=== PATIENT | female | born 1960 | race African-American/Black ===

== ENCOUNTER 2019-11-16 17:55 | Inpatient (IN) | payer MEDICAID ==
[~2019-11-16] VITALS: Ht 160 cm; Wt 75.0 kg
--- NOTE | 2019-11-16 18:07 | NUR ---
ED Nurse Note: Patient picked up from street and brought in by RA 26 due to altered level of consciousness. Bystanders called 911 and patient was found laying down on the ground and still altered. BS upon arrival 95. Patient came in awake but agitated and uncooperative with ED staff. No respiratory distress.
--- NOTE | 2019-11-16 18:08 | Emergency Room Report ---
History of Present Illness General Chief Complaint: Altered Level of Consciousness Source: Patient, EMS Present Illness HPI Patient is a 58-year-old female past medical history of seizure disorder and diabetes who was brought into the ER for altered mental status. EMS was called by bystanders. Apparently patient was found altered outside of her apartment. Patient is alert and oriented x2 to person and place. She knows her name and she knows that she is in the hospital but she does not know what city she is in and she does not know what the date is. Patient is very confused. Patient has leads on her chest from prior hospital visit unclear when that was or where she went. Unable to obtain further history at this time. Allergies: Coded Allergies: No Known Allergies (Unverified , 11/16/19) COVID-19 Screening Contact w/high risk pt: No Experienced COVID-19 symptoms?: No COVID-19 Testing performed SERVER PROGRAMMER: No Patient History Now: No Reviewed Nursing Documentation: PMH: Agreed; PSxH: Agreed Nursing Documentation-PMH Past Medical History: No History, Except For Hx Hypertension: Yes Hx Diabetes: Yes Hx Seizures: Yes Review of Systems All Other Systems: limited - encephalopathy Physical Exam Vital Signs Date Time Temp Pulse Resp B/P (MAP) Pulse Ox O2 Delivery O2 Flow Rate FiO2 11/16/19 17:57 98.2 87 18 150/92 (111) 98 Room Air Sp02 EP Interpretation: reviewed, normal General Appearance: other - Used poorly groomed Head: normocephalic, atraumatic Eyes: bilateral eye normal inspection, bilateral eye PERRL ENT: dry mucus membranes Neck: full range of motion, supple Respiratory: chest non-tender, lungs clear, normal breath sounds, speaking full sentences Cardiovascular #1: regular rate, rhythm, no edema Gastrointestinal: non tender, soft, no guarding, no rebound, overweight Rectal: deferred Musculoskeletal: normal range of motion, swelling - Bilateral lower extremity pitting edema no erythema or tenderness to palpation Neurologic: other - Alert and oriented x2 Psychiatric: other - confused Skin: no rash Lymphatic: no adenopathy Medical Decision Making Diagnostic Impression: Primary Impression: Encephalopathy Additional Impressions: UTI (urinary tract infection) PCP (phencyclidine) abuse ER Course Patient initially refusing medical care. She was combative. Patient given 2 mg of intramuscular Ativan as well as 50 mg of intramuscular Benadryl. Haldol was not given due to the fact that the patient has a recorded allergy to Haldol. Patient now resting comfortably in her bed. CT brain demonstrates no acute intracranial pathology. Vital signs have been stable. Patient's UA positive. Patient given 1 g of IV Rocephin. Patient's UDS positive for PCP. Patient will be admitted for further treatment and evaluation. Laboratory Tests Test 11/16/19 19:28 11/16/19 19:45 11/16/19 20:03 White Blood Count 7.8 K/UL (4.8-10.8) Red Blood Count 4.51 M/UL (4.20-5.40) Hemoglobin 15.3 G/DL (12.0-16.0) Hematocrit 47.4 % (37.0-47.0) H Mean Corpuscular Volume 105 FL (80-99) H Mean Corpuscular Hemoglobin 33.9 PG (27.0-31.0) H Mean Corpuscular Hemoglobin Concent 32.3 G/DL (32.0-36.0) Red Cell Distribution Width 12.0 % (11.6-14.8) Platelet Count 153 K/UL (150-450) Mean Platelet Volume 7.9 FL (6.5-10.1) Neutrophils (%) (Auto) 53.3 % (45.0-75.0) Lymphocytes (%) (Auto) 39.3 % (20.0-45.0) Monocytes (%) (Auto) 5.9 % (1.0-10.0) Eosinophils (%) (Auto) 0.4 % (0.0-3.0) Basophils (%) (Auto) 1.1 % (0.0-2.0) Sodium Level 146 MMOL/L (136-145) H Potassium Level 4.2 MMOL/L (3.5-5.1) Chloride Level 108 MMOL/L (98-107) H Carbon Dioxide Level 29 MMOL/L (21-32) Anion Gap 10 mmol/L (5-15) Blood Urea Nitrogen 19 mg/dL (7-18) H Creatinine 0.8 MG/DL (0.55-1.30) Estimated Glomerular Filtration Rate > 60 mL/min (>60) Glucose Level 92 MG/DL (74-106) Lactic Acid Level 1.20 mmol/L (0.4-2.0) Calcium Level 9.2 MG/DL (8.5-10.1) Magnesium Level 2.3 MG/DL (1.8-2.4) Total Bilirubin 1.2 MG/DL (0.2-1.0) H Direct Bilirubin 0.7 MG/DL (0.0-0.3) H Aspartate Amino Transferase (AST) 46 U/L (15-37) H Alanine Aminotransferase (ALT) 51 U/L (12-78) Alkaline Phosphatase 140 U/L (46-116) H Ammonia 18 umol/L (11-32) Total Creatine Kinase 193 U/L (26-308) Troponin I 0.000 ng/mL (0.000-0.056) Pro-B-Type Natriuretic Peptide 86 pg/mL (0-125) Total Protein 8.1 G/DL (6.4-8.2) Albumin 3.7 G/DL (3.4-5.0) Globulin 4.4 g/dL Albumin/Globulin Ratio 0.8 (1.0-2.7) L Serum Alcohol < 3 mg/dL Prothrombin Time 11.5 SEC (9.30-11.50) Prothrombin Time INR 1.0 (0.9-1.1) Activated Partial Thromboplast Time 34 SEC (23-33) H Urine Color Yellow Urine Appearance Clear Urine pH 7 (4.5-8.0) Urine Specific [place] 1.015 (1.005-1.035) Urine Protein Negative (NEGATIVE) Urine Glucose (UA) Negative (NEGATIVE) Urine Ketones 2+ (NEGATIVE) H Urine Blood Negative (NEGATIVE) Urine Nitrite Negative (NEGATIVE) Urine Bilirubin Negative (NEGATIVE) Urine Urobilinogen 4 MG/DL (0.0-1.0) H Urine Leukocyte Esterase 1+ (NEGATIVE) H Urine RBC 0 /HPF (0 - 2) Urine WBC 5-10 /HPF (0 - 2) H Urine Squamous Epithelial Cells Moderate /LPF (NONE/OCC) H Urine Bacteria Few /HPF (NONE) Urine Mucus Many /LPF (NONE/OCC) H Urine Opiates Screen Negative (NEGATIVE) Urine Barbiturates Screen Negative (NEGATIVE) Phencyclidine (PCP) Screen Positive (NEGATIVE) H Urine Amphetamines Screen Negative (NEGATIVE) Urine Benzodiazepines Screen Negative (NEGATIVE) Urine Cocaine Screen Negative (NEGATIVE) Urine Marijuana (THC) Screen Negative (NEGATIVE) Laboratory Tests Test 11/16/19 19:28 11/16/19 19:45 11/16/19 20:03 White Blood Count 7.8 K/UL (4.8-10.8) Red Blood Count 4.51 M/UL (4.20-5.40) Hemoglobin 15.3 G/DL (12.0-16.0) Hematocrit 47.4 % (37.0-47.0) H Mean Corpuscular Volume 105 FL (80-99) H Mean Corpuscular Hemoglobin 33.9 PG (27.0-31.0) H Mean Corpuscular Hemoglobin Concent 32.3 G/DL (32.0-36.0) Red Cell Distribution Width 12.0 % (11.6-14.8) Platelet Count 153 K/UL (150-450) Mean Platelet Volume 7.9 FL (6.5-10.1) Neutrophils (%) (Auto) 53.3 % (45.0-75.0) Lymphocytes (%) (Auto) 39.3 % (20.0-45.0) Monocytes (%) (Auto) 5.9 % (1.0-10.0) Eosinophils (%) (Auto) 0.4 % (0.0-3.0) Basophils (%) (Auto) 1.1 % (0.0-2.0) Sodium Level 146 MMOL/L (136-145) H Potassium Level 4.2 MMOL/L (3.5-5.1) Chloride Level 108 MMOL/L (98-107) H Carbon Dioxide Level 29 MMOL/L (21-32) Anion Gap 10 mmol/L (5-15) Blood Urea Nitrogen 19 mg/dL (7-18) H Creatinine 0.8 MG/DL (0.55-1.30) Estimated Glomerular Filtration Rate > 60 mL/min (>60) Glucose Level 92 MG/DL (74-106) Lactic Acid Level 1.20 mmol/L (0.4-2.0) Calcium Level 9.2 MG/DL (8.5-10.1) Magnesium Level 2.3 MG/DL (1.8-2.4) Total Bilirubin 1.2 MG/DL (0.2-1.0) H Direct Bilirubin 0.7 MG/DL (0.0-0.3) H Aspartate Amino Transferase (AST) 46 U/L (15-37) H Alanine Aminotransferase (ALT) 51 U/L (12-78) Alkaline Phosphatase 140 U/L (46-116) H Ammonia 18 umol/L (11-32) Total Creatine Kinase 193 U/L (26-308) Troponin I 0.000 ng/mL (0.000-0.056) Pro-B-Type Natriuretic Peptide 86 pg/mL (0-125) Total Protein 8.1 G/DL (6.4-8.2) Albumin 3.7 G/DL (3.4-5.0) Globulin 4.4 g/dL Albumin/Globulin Ratio 0.8 (1.0-2.7) L Serum Alcohol < 3 mg/dL Prothrombin Time Pending Prothrombin Time INR Pending Activated Partial Thromboplast Time Pending Urine Color Yellow Urine Appearance Clear Urine pH 7 (4.5-8.0) Urine Specific [place] 1.015 (1.005-1.035) Urine Protein Negative (NEGATIVE) Urine Glucose (UA) Negative (NEGATIVE) Urine Ketones 2+ (NEGATIVE) H Urine Blood Negative (NEGATIVE) Urine Nitrite Negative (NEGATIVE) Urine Bilirubin Negative (NEGATIVE) Urine Urobilinogen 4 MG/DL (0.0-1.0) H Urine Leukocyte Esterase 1+ (NEGATIVE) H Urine RBC 0 /HPF (0 - 2) Urine WBC 5-10 /HPF (0 - 2) H Urine Squamous Epithelial Cells Moderate /LPF (NONE/OCC) H Urine Bacteria Few /HPF (NONE) Urine Mucus Many /LPF (NONE/OCC) H Urine Opiates Screen Negative (NEGATIVE) Urine Barbiturates Screen Negative (NEGATIVE) Phencyclidine (PCP) Screen Positive (NEGATIVE) H Urine Amphetamines Screen Negative (NEGATIVE) Urine Benzodiazepines Screen Negative (NEGATIVE) Urine Cocaine Screen Negative (NEGATIVE) Urine Marijuana (THC) Screen Negative (NEGATIVE) EKG Diagnostic Results EKG Time: 18:10 EP Interpretation: Latisha Morrissey MD Rate: normal Rhythm: NSR - [address] Segments: no acute changes ASA given to the pt in ED: No Rhythm Strip Diag. Results Rhythm Strip Time: 18:14 EP Interpretation: yes - Latisha Morrissey MD Rate: 79 bpm Rhythm: NSR, no PVC's, no ectopy Chest X-Ray Diagnostic Results Chest X-Ray Diagnostic Results : Chest X-Ray Ordered: Yes # of Views/Limited/Complete: 1 View Indication: Other - ams EP Interpretation: Yes Interpretation: no consolidation, no effusion, no acute cardiopulmonary disease Impression: No acute disease Electronically Signed by: Latisha Morrissey MD Last Vital Signs Date Time Temp Pulse Resp B/P (MAP) Pulse Ox O2 Delivery O2 Flow Rate FiO2 11/16/19 17:57 98.2 87 18 150/92 (111) 98 Room Air Disposition: ADMITTED INPATIENT - Telemetry Condition: Critical Physician Consult: Dr. Cantor, at 2147 Additional Instructions: Please note that this report is being documented using [employer] technology. This can lead to erroneous entry secondary to incorrect interpretation by the dictating instrument. Latisha Morrissey M.D. Nov 16, 2019 18:08
--- NOTE | 2019-11-16 18:21 | NUR ---
ED Nurse Note: Unable to draw out blood from pt due to being restless and agitated. Patient keeps moving and sitting up. Dr Morrissey notified.
[2019-11-16] MEDS ORDERED: LORazepam Inj 2mg/ml 1ml IM ONE (18:30)
[2019-11-16] MEDS ORDERED: DiphenhydrAMINE 50mg/ml Inj IM ONE (18:30)
--- NOTE | 2019-11-16 18:40 | NUR ---
ED Nurse Note: patient keeps removing her cardiac cath lab radiology technologist leads and BP cuff.
--- NOTE | 2019-11-16 19:24 | NUR ---
HAND-OFF: Report given to Reema DOUGLAS.
--- NOTE | 2019-11-16 19:25 | NUR ---
ED Nurse Note: Report received from STELLA Chen.
[2019-11-16 19:51] LABS: BASOPHILS % (AUTO) 1.1 % (0.0-2.0); EOSINOPHILS % (AUTO) 0.4 % (0.0-3.0); HEMATOCRIT 47.4 % (37.0-47.0); HEMOGLOBIN 15.3 G/DL (12.0-16.0); LYMPHOCYTES % (AUTO) 39.3 % (20.0-45.0); MEAN CORPUSCULAR VOLUME 105 FL (80-99); MONOCYTES % (AUTO) 5.9 % (1.0-10.0); NEUTROPHILS % (AUTO) 53.3 % (45.0-75.0); PLATELET COUNT 153 K/UL (150-450); RED BLOOD COUNT 4.51 M/UL (4.20-5.40); WHITE BLOOD COUNT 7.8 K/UL (4.8-10.8)
[2019-11-16 19:57] LABS: ANION GAP 10 mmol/L (5-15); BLOOD UREA NITROGEN 19 mg/dL (7-18); CALCIUM 9.2 MG/DL (8.5-10.1); CARBON DIOXIDE 29 MMOL/L (21-32); CHLORIDE 108 MMOL/L (98-107); CREATININE 0.8 MG/DL (0.55-1.30); POTASSIUM 4.2 MMOL/L (3.5-5.1); SODIUM 146 MMOL/L (136-145)
[2019-11-16 20:00] VITALS: BP 172/104
[2019-11-16 20:00] LABS: AMMONIA 18 umol/L (11-32)
--- NOTE | 2019-11-16 20:00 | NUR ---
ED Nurse Note: Patient is awake and alert, but not oriented. She is able to mumble words that do not make complete sense. Patient still presents altered at this time. Patient connected to panel monitor; will continue to monitor.
[2019-11-16 20:08] LABS: ALANINE AMINOTRANSFERASE 51 U/L (12-78); ALBUMIN 3.7 G/DL (3.4-5.0); ALBUMIN/GLOBULIN RATIO 0.8 (1.0-2.7); ALKALINE PHOSPHATASE 140 U/L (46-116); ASPARTATE AMINO TRANSFERASE 46 U/L (15-37); BILIRUBIN,TOTAL 1.2 MG/DL (0.2-1.0); CREATINE KINASE 193 U/L (26-308)
--- NOTE | 2019-11-16 20:15 | NUR ---
ED Nurse Note: Urine sample obtained and sent to lab.
[2019-11-16 20:26] LABS: BILIRUBIN,DIRECT 0.7 MG/DL (0.0-0.3)
[2019-11-16 20:45] LABS: APPEARANCE,URINE CLEAR; BILIRUBIN, URINE NEGATIVE (NEGATIVE); GLUCOSE, URINE (UA) NEGATIVE (NEGATIVE); KETONES,URINE 2+ (NEGATIVE); LEUKOCYTE ESTERASE ,URINE 1+ (NEGATIVE); NITRITE,URINE NEGATIVE (NEGATIVE); PH,URINE 7 (4.5-8.0); PROTEIN,URINE NEGATIVE (NEGATIVE); UROBILINOGEN,URINE 4 MG/DL (0.0-1.0)
--- NOTE | 2019-11-16 20:45 | NUR ---
ED Nurse Note: Patient taken to CT.
[2019-11-16 20:48] LABS: COLOR,URINE YELLOW
--- NOTE | 2019-11-16 21:03 | Diagnostic Imaging Report ---
EXAM: CT Head Without Intravenous Contrast CLINICAL HISTORY: AMS TECHNIQUE: Axial computed tomography images of the head/brain without intravenous contrast. CTDI is 53.4 mGy and DLP is 1152.4 mGy-cm. One or more of the following dose reduction techniques were used: automated exposure control, adjustment of the mA and/or kV according to patient size, use of iterative reconstruction technique. COMPARISON: No relevant prior studies available. FINDINGS: Brain: Parenchymal volume loss. Nonspecific white matter hypoattenuation likely secondary to chronic microvascular ischemia. Cerebrovascular ASVD. No hemorrhage. Ventricles: Unremarkable. No ventriculomegaly. Bones/joints: Unremarkable. No acute fracture. Soft tissues: Unremarkable. Sinuses: Unremarkable as visualized. No acute sinusitis. Mastoid air cells: Unremarkable as visualized. No mastoid effusion. IMPRESSION: 1. No acute intracranial abnormality. 2. Mild chronic senescent findings above. 3. Otherwise unremarkable study.
[2019-11-16] MEDS ORDERED: cefTRIAXone 1 GM in NS 55 ML IVPB ONE (21:15)
--- NOTE | 2019-11-16 22:00 | NUR ---
ED Nurse Note: Patient is sleeping at this time, NAD noted. Patient is NSR on monitoring coordinator with stable HR. All safety measures in place. Will continue to monitor for change in condition.
[2019-11-16] MEDS ORDERED: Potassium Chloride 30 MEQ in 1/2 NS 1000ml 1,000 ML IV SCH (22:15)
[2019-11-16 22:30] VITALS: BP 115/71
[2019-11-17 00:15] VITALS: BP 125/77
--- NOTE | 2019-11-17 00:15 | NUR ---
ED Nurse Note: Patient's vital signs are stable. She remains sleeping at this time. Will continue to monitor. No change in condition.
--- NOTE | 2019-11-17 01:00 | NUR ---
ED Nurse Note: Report given to STELLA Bueno.
--- NOTE | 2019-11-17 01:20 | NUR ---
ED Nurse Note: Patient is stable for transfer to tele unit at this time per ERMD orders. Patient is awake and opens eyes spontaneously, but is not aaox4. Patient breathing is normal and unlabored, VSS. NAD. Patient taken to unit via gurney while connected to director payment with RN and tech. All pt belongings taken to unit with her. IV intact.
--- NOTE | 2019-11-17 01:51 | NUR ---
NURSE NOTES: Received patient from STELLA Benavidez. Patient brought in by 2 ED personnel. Patient on room air, saturating well. IV site on RFA #20g, SL. Patient asleep, and arousable but only for a limited time and dozes back to sleep. Patient admitted under observation under the care of Dr. Cantor for AMS. Orders seen and noted. Called and left a message with Dr. Cantor regarding the availability of the IVF he ordered; was told by pharmacy that the only IV in the facility is 1/2 NS with 20 mEq of KCl instead. Awaiting call back and orders from Dr. Cantor. Bed in lowest position, brakes engaged and bed alarm on. Belongings list seen and accounted for. Call light placed within reach. Will continue to monitor.
--- NOTE | 2019-11-17 02:02 | NUR ---
NURSE NOTES: Dr. Cantor called back and clarified the IVF order. Stated that he hasn't put it any orders for the patient, but will verify patient's eMAR.
--- NOTE | 2019-11-17 03:07 | NUR ---
NURSE NOTES: Patient unable to respond fully to inquiries regarding home medications. Asked if she knows any one we can contact to verify information, and was unable to recall any number. Will try again when patient is more alert.
[2019-11-17] MEDS: 1/2NS w/KCl 20mEq 1000ml 1,000 ML IV SCH ×3 (03:28→17:53)
[2019-11-17 04:00] VITALS: BP 124/71
--- NOTE | 2019-11-17 07:35 | NUR ---
NURSE NOTES: Received patient in bed. Awake, A/O x2. On room air, respirations unlabored. Patient denies pain. IV in the Right forearm, site intact. Bed low and locked, side rails up x2. patient is a high fall risk d/t h/o being found down on the streets. Patient placed close to the nurses station for safety and close monitoring, bed alarm and high sensitivity, bed at the lowest position, yellow socks on, yellow gown on, call light within reach - unable to return demonstration. CN and INDUSTRIAL AUTOMATION SPECIALIST made aware.
--- NOTE | 2019-11-17 07:38 | NUR ---
NURSE HAND-OFF REPORT: Important Events on Shift:[Unable to respond fully to queries. Endorsed need for med recon and verify Haldol allergy, as seen on ED report.] Patient Status: [FC] Diet: [Regular] Pending Orders: [] Pending Results/Labs:[] Pending MD notification:[] Latest Vital Signs: Temperature 97.5 , Pulse 62 , B/P 124 /71 , Respiratory Rate 18 , O2 SAT 96 , Room Air, O2 Flow Rate . Vital Sign Comment: [] EKG Rhythm: Sinus Rhythm Rhythm change?: N MD Notified?: - MD Response: Latest Gusman Fall Score: 35 Fall Risk: Medium Risk Safety Measures: Call light Within Reach, Bed Alarm Zone 1, Side Rails Side Rails x2, Bed position Low and Locked. Fall Precautions: Yellow Socks Yellow Gown Door Sign Patient Fall Education Report given to [STELLA Bullard].
[2019-11-17 08:00] VITALS: BP 155/90
[2019-11-17] MEDS: Heparin 5000 units/ml inj SUBQ SCH ×2 (08:50→22:16)
[2019-11-17 10:48] LABS: ALANINE AMINOTRANSFERASE 48 U/L (12-78); ALBUMIN/GLOBULIN RATIO 0.8 (1.0-2.7); ALKALINE PHOSPHATASE 122 U/L (46-116); ANION GAP 8 mmol/L (5-15); ASPARTATE AMINO TRANSFERASE 52 U/L (15-37); BILIRUBIN,TOTAL 0.9 MG/DL (0.2-1.0); BLOOD UREA NITROGEN 16 mg/dL (7-18); CALCIUM 8.4 MG/DL (8.5-10.1); CARBON DIOXIDE 29 MMOL/L (21-32); CHLORIDE 109 MMOL/L (98-107); CREATININE 0.7 MG/DL (0.55-1.30); POTASSIUM 4.4 MMOL/L (3.5-5.1); SODIUM 145 MMOL/L (136-145)
--- NOTE | 2019-11-17 11:16 | NUR ---
NURSE NOTES: Patient removed IV site. Patient stood from bed and shouting "listen to her. There's a women in the restroom. Open the door!" Bed sheets soaked in urine. Patient put back in bed, bed sheets changed, gown changed, patient reoriented to situation and room. Patient sitting in bed eating breakfast.
[2019-11-17 11:56] VITALS: BP 139/84
--- NOTE | 2019-11-17 12:09 | NUR ---
NURSE NOTES: Patient keeps removing electrodes. Unable to replace electrodes on patient.
--- NOTE | 2019-11-17 12:44 | NUR ---
NURSE NOTES: Patient agitated. Refusing to get back in bed. Patient fixated on patient bed 1, removing and replacing bed sheets from patient in bed 1. Patient yelling "she needs help!" Unable to calm patient. Patient became combative and uncooperative to return to bed. Patient assisted into bed with 2 staff. Bilateral soft-wrist restraints applied with order from Dr. cantor. Dr. estrada to see patient today per Dr. Cantor.
--- NOTE | 2019-11-17 12:46 | NUR ---
MEDICAL STAFF SERVICES MANAGER NOTE SW met w/ pt to discuss substance abuse issue. Pt presents as A&O2-3x, guarded, and selective w/ questions. Pt reports she has been homeless for unknown time, and she does not have children or any other family members. PT did not disclose her current income. Pt also declined to discuss substance abuse issue. RUDS positive for PCP. PT declined counseling/tx intervention/resource on substance abuse. SW attempted to discuss prelim dc plan w/ pt but pt starred at this SW, declined to discuss. SW will attempt to discuss dc planning again.
--- NOTE | 2019-11-17 13:45 | Diagnostic Imaging Report ---
Indication: Chest pain, altered mental status Technique: XRAY Chest 1v Comparison: None Findings: Heart is mildly enlarged. Aorta is tortuous and ectatic. There is pulmonary vascular congestion and patchy bibasilar airspace opacities. No pleural effusion or pneumothorax. There are degenerative changes in the spine. There are acute to subacute fractures of the left third and fourth posterior ribs. Additional chronic-appearing bilateral rib fractures. IMPRESSION: Acute to subacute appearing fractures of the left posterior third and fourth ribs. Additional bilateral chronic appearing rib fractures. No pneumothorax or pleural effusion. * Mild cardiomegaly and atherosclerotic disease. * Interstitial prominence and patchy bibasilar opacities. Findings may related to interstitial edema and atelectasis. Pneumonia however is not excluded. Follow-up recommended.
--- NOTE | 2019-11-17 14:29 | NUR ---
CASE MANAGEMENT:REVIEW BIBA FROM STREET SI: ENCEPHALOPATHY. UTI. PCP ABUSE 99.6 87 18 150/92 98% ON RA TBILI+1.2 DBILI+0.7 URINE(+) PCP IS: 1L NS BOLUS BENADRYL IM IV ROCEPHIN CT HEAD CHEST XRAY : TO TELEMETRY UNIT PLAN: SOCIAL SERVICE CONSULT
--- NOTE | 2019-11-17 15:13 | NUR ---
NURSE NOTES: Patient transferred to med-surg floor roomo 420-1. Heart monitor removed, IV in Left upper arm. On room air, respirations unlabored. Bed low and locked, bed alarm on, side rails up x2, call light within reach. Bilateral soft-wrist restraints in place. Report given to Kinga DOUGLAS.
--- NOTE | 2019-11-17 15:37 | NUR ---
NURSE NOTES: Patient received from Tele unit at 1515 from STELLA Bullard. patient in bed, alert and oriented x 2 with confusion, verbal and able to make needs known, no SOB, bed in lowest position with alarm on and breaks engaged, denies any pain at this time, IV line on SAMUEL patent and intact, bilateral soft wrist restraints in place, no skin break down noted upon assessment per endorsement, on room air, pt refused skin re-assessment in med-surg, will continue to ff up and monitor and proceed with plan of care, belongings checked by charge nurse, pt adjusting well, oriented to staff and room, call light within reach,
[2019-11-17 16:00] VITALS: BP 144/90
--- NOTE | 2019-11-17 19:13 | NUR ---
NURSE HAND-OFF: Important Events on Shift:[fall and safety precautions, patient trying to get out of bed, Dr. Ryder made aware] Patient Status: [stable, restless] Diet: [regular] Pending Orders: [] Pending Results/Labs:[] Pending MD notification:[] Latest Vital Signs: Temperature 97.9 , Pulse 74 , B/P 144 /90 , Respiratory Rate 17 , O2 SAT 94 , Room Air, O2 Flow Rate . Vital Sign Comment: [] Latest Gusman Fall Score: 35 Fall Risk: Medium Risk Safety Measures: Call light Within Reach, Bed Alarm Zone 1, Side Rails Side Rails x2, Bed position Low and Locked. Fall Precautions: Yellow Socks Yellow Gown Patient Fall Education Report given to [PETER Claire].
[2019-11-17] MEDS ORDERED: Haloperidol 5mg/ml Inj IM PRN (19:45)
--- NOTE | 2019-11-17 19:45 | NUR ---
NURSE NOTES: Dr Ryder made aware regarding patient being restless and trying to stand up unassisted, ordered Haldol 5 mg IM q6 PRN. endorsed to next shift.
[2019-11-17 20:00] VITALS: BP 146/85
[2019-11-18] VITALS: BP 158/78
--- NOTE | 2019-11-18 02:11 | Cardiology Progress Note ---
Subjective DATE OF SERVICE: Nov 17, 2019 Agitated at times; confused. Excellent po intake Unreliable historian Metabolic work up - normal B12/folate/TSH XRays reveal several acute rib fx's Objective Last 24 Hour Vital Signs Date Time Temp Pulse Resp B/P (MAP) Pulse Ox O2 Delivery O2 Flow Rate FiO2 11/18/19 00:00 97.3 61 19 158/78 (104) 96 11/17/19 20:00 97.3 79 18 146/85 (105) 96 11/17/19 16:00 97.9 74 17 144/90 (108) 94 11/17/19 12:00 81 11/17/19 11:56 98.5 69 17 139/84 (102) 92 11/17/19 08:21 Room Air 11/17/19 08:00 97.9 69 17 155/90 (111) 93 11/17/19 08:00 63 11/17/19 04:00 97.5 62 18 124/71 (88) 96 11/17/19 04:00 62 11/17/19 03:08 Room Air HEENT: normal ENT inspection RHYTHM: NSR LUNGS: diminished breath sounds, other - tender chest wall to palp CARDIAC: normal rate, regular rhythm, normal S1 and S2 ABDOMEN: non tender, soft, no organomegaly EXTREMITIES: normal range of motion, No edema Laboratory Tests Test 11/17/19 10:00 Sodium Level 145 MMOL/L (136-145) Potassium Level 4.4 MMOL/L (3.5-5.1) Chloride Level 109 MMOL/L (98-107) H Carbon Dioxide Level 29 MMOL/L (21-32) Anion Gap 8 mmol/L (5-15) Blood Urea Nitrogen 16 mg/dL (7-18) Creatinine 0.7 MG/DL (0.55-1.30) Estimat Glomerular Filtration Rate > 60 mL/min (>60) Glucose Level 66 MG/DL (74-106) L Calcium Level 8.4 MG/DL (8.5-10.1) L Total Bilirubin 0.9 MG/DL (0.2-1.0) Aspartate Amino Transf (AST/SGOT) 52 U/L (15-37) H Alanine Aminotransferase (ALT/SGPT) 48 U/L (12-78) Alkaline Phosphatase 122 U/L (46-116) H Total Protein 6.8 G/DL (6.4-8.2) Albumin 3.0 G/DL (3.4-5.0) L Globulin 3.8 g/dL Albumin/Globulin Ratio 0.8 (1.0-2.7) L Vitamin B12 Level 527 PG/ML (193-986) Folate 39.4 NG/ML (8.6-58.9) Thyroid Stimulating Hormone (TSH) 1.248 uiU/mL (0.358-3.740) Assessment/Plan Assessment/Plan Substance abuse; PCP Acute rib fractures Toxic encephalopathy Dehydration/hypernatremia/hypovolemia Metabolic encephalopathy Homeless Hx DM Hx HTN Plan as outlined 11/16/19 D/W skilled nursing case manager Peter Cantor MD Nov 18, 2019 02:11
[2019-11-18] MEDS: 1/2NS w/KCl 20mEq 1000ml 1,000 ML IV SCH ×3 (02:30→17:49)
[2019-11-18 04:00] VITALS: BP 156/87
--- NOTE | 2019-11-18 04:30 | History and Physical Report ---
DATE OF ADMISSION: 11/16/2019 REASON FOR ADMISSION: Altered mentation. HISTORY OF PRESENT ILLNESS: This is a 58-year-old female. She was found by paramedics with altered mentation. She was alert and oriented x1. She was found to have a positive tox screen for PCP. She apparently has recently been in another hospital because she has EKG leads on her chest. PAST MEDICAL HISTORY: Reportedly notable for hypertension, diabetes, and seizures. MEDICATIONS: Unknown. ALLERGIES: None known. SOCIAL HISTORY: Notable for substance abuse. She is an active smoker, but denies alcohol abuse. REVIEW OF SYSTEMS: Cannot be reliably obtained. PHYSICAL EXAMINATION: VITAL SIGNS: Blood pressure 150/92, pulse 87, respirations 18, and afebrile. HEENT: Conjunctivae are pink. Oropharynx clear. NECK: Supple. LUNGS: Diminished breath sounds. CHEST WALL: Tender to palpation. CARDIAC: Regular. Normal S1, S2. No murmur. ABDOMEN: Soft. EXTREMITIES: No edema. NEUROLOGIC: Nonfocal. With alert and oriented x1 only. There is no tremor or asterixis. LABORATORY AND DIAGNOSTIC DATA: White count 7.8, hemoglobin 15. Lactic acid 1.2. Sodium 146, potassium 4.2, bicarb 29, BUN 19, creatinine 0.8. Ammonia 18. Urinalysis only notable for [address] of the brain, no acute process. Chest x-ray with acute and subacute rib fractures. IMPRESSION: 1. Substance abuse. 2. PCP intoxication. 3. Multiple rib fractures. 4. Toxic and metabolic encephalopathies. 5. History of hypertension. 6. Possible history of seizure disorder. 7. History of diabetes mellitus. 8. Dehydration, hypernatremia. 9. Hypovolemia. 10. Possible urinary tract infection. PLAN: 1. Hypotonic IV fluids. 2. Withdrawal precautions. 3. Pain control. 4. Social service consult. 5. DVT prophylaxis. 6. Attempt to expand database. Peter Cantor M.D. DR: ANTOINETTE JOB#: [id number] CC: ALIVIA
[2019-11-18 07:36] LABS: HEMATOCRIT 49.4 % (37.0-47.0); HEMOGLOBIN 16.1 G/DL (12.0-16.0); MEAN CORPUSCULAR VOLUME 101 FL (80-99); PLATELET COUNT 162 K/UL (150-450); RED BLOOD COUNT 4.89 M/UL (4.20-5.40); RED CELL DISTRIBUTION WIDTH 11.3 % (11.6-14.8); WHITE BLOOD COUNT 5.8 K/UL (4.8-10.8)
--- NOTE | 2019-11-18 07:40 | NUR ---
NURSE NOTES: Received report from STELLA Guzman . patient in bed, alert and oriented x 2 with confusion, verbal and able to make need known. No current IV line due to patient. will try to insert new IV. Bilateral soft wrist restraints in place, no skin break down noted upon assessment per endorsement, on room air, pt refused skin re-assessment at this time will continue to follow up and monitor and proceed with plan of care. Bed is locked and placed in lowest position with bed alarm on. Call light within reach. Will continue to monitor
[2019-11-18 08:00] VITALS: BP 152/89
[2019-11-18 08:12] LABS: ALANINE AMINOTRANSFERASE 62 U/L (12-78); ALBUMIN 3.4 G/DL (3.4-5.0); ALBUMIN/GLOBULIN RATIO 0.8 (1.0-2.7); ALKALINE PHOSPHATASE 139 U/L (46-116); ANION GAP 11 mmol/L (5-15); ASPARTATE AMINO TRANSFERASE 84 U/L (15-37); BLOOD UREA NITROGEN 15 mg/dL (7-18); CALCIUM 8.9 MG/DL (8.5-10.1); CARBON DIOXIDE 25 MMOL/L (21-32); CHLORIDE 107 MMOL/L (98-107); CREATININE 0.4 MG/DL (0.55-1.30); POTASSIUM 5.4 MMOL/L (3.5-5.1); SODIUM 143 MMOL/L (136-145)
[2019-11-18] MEDS ORDERED: Meloxicam 15 MG TAB ORAL SCH (09:00)
[2019-11-18] MEDS: Heparin 5000 units/ml inj SUBQ SCH ×2 (09:03→22:33)
--- NOTE | 2019-11-18 10:45 | NUR ---
NURSE NOTES: Admitting department called and made RN aware that patients last day of observation is today. RN called and left message with Dr. Cantor if patient will be admitted as in patient or possible discharge today. Awaiting call back
--- NOTE | 2019-11-18 11:12 | NUR ---
NURSE NOTES: RN tried to start a new IV and clean patient, but patient refused and became agitated. RN made charge nurse aware and charge nurse left a message with Dr. Cantor regarding unable to start IV access
--- NOTE | 2019-11-18 11:15 | NUR ---
NURSE NOTES: RN made Dr. Cantor aware that patient has no code status. No new orders
[2019-11-18 12:00] VITALS: BP 154/96
--- NOTE | 2019-11-18 12:38 | NUR ---
NURSE NOTES: Patient off restraints per Dr. Cantor. Patient able to walk with a semi-steady gait with cane. patient walks in a sideway manner while sliding the back foot slightly as the front advances. Patients cane is uneven, but patient able to use to balance self. patient was able to walk from room to nursing station and back with minimal to no assistance from RN Addendum: 11/18/19 at 1425 by Alec Nelson RN Patient was seen by PT and per KIKO Gonzalez. Patient is able to ambulate with no loss of balance with symmetrical strength of bilateral legs. Although patients baseline gait is unorthodox, patient can ambulate safely
--- NOTE | 2019-11-18 13:46 | NUR ---
NURSE NOTES: Per Dr. Cantor, patient does not need IV site Addendum: 11/18/19 at 1556 by Alec Nelson RN STELLA made charge nurse aware
--- NOTE | 2019-11-18 14:06 | NUR ---
EHR TRAINER NOTE SW met w/ pt to assess her mood and for any needs. Pt was sitting on the chair, watching TV. Pt reports she is feeling better. When this SW attempted to ask her more questions, pt became mute, and continued watching TV. SW attempted to call [facility] [phone] 2x. The calls were not answered and it went to voicemail. SW left a for call back.
--- NOTE | 2019-11-18 14:09 | NUR ---
CASE MANAGEMENT:REVIEW 11/18/19 SI: ENCEPHALOPATHY. RIB FRACTURES UNSTEADY GAIT. PCP 97.3 70 20 152/89 96% ON RA H/H+16.1/49.4 K+5.4 GLUCOSE-63 IS: MOBIC PO QD HALDOL IM Q6HRS PRN HEPARIN SQ Q12 IVF@125/HR : MED/SURG STATUS 4 EAST PLAN: PT EVAL
--- NOTE | 2019-11-18 14:44 | NUR ---
P.T Note: P.T evaluation completed. Pt functioning independently on basic ADL/functional mobilities and gait/locomotion. Skilled P.T services not needed at this time. DC P.T services. Addendum: 11/18/19 at 1444 by CATHERINE MACK PT Amended: Links added.
[2019-11-18 16:00] VITALS: BP 127/99
--- NOTE | 2019-11-18 16:45 | NUR ---
NURSE NOTES: RN tried to start an IV line, but patient got agitated and refused. Patient stated "i want to go smoke outside, i dont want to be sticked" RN made charge nurse aware. Will try again later
--- NOTE | 2019-11-18 18:30 | NUR ---
NURSE NOTES: Patient seen in hallway with interactive media marketing specialist and cigarette. RN asked patient to give up interactive media marketing specialist and cigarette, but patient refused and got agitated.
--- NOTE | 2019-11-18 18:48 | NUR ---
NURSE NOTES: Security took overhauler helper and cigarette from patient. Live Ammunition Inspector and cigarette in the security desk
--- NOTE | 2019-11-18 19:28 | NUR ---
NURSE HAND-OFF: Important Events on Shift:Patient for discharge, cigarette and physician assistant certified was found at bedside, but now with security, d/c restraints Patient Status: stable Diet: regular Pending Orders: n/a Pending Results/Labs:n/a Pending MD notification: code status Latest Vital Signs: Temperature 98.2 , Pulse 82 , B/P 127 /99 , Respiratory Rate 20 , O2 SAT 97 , Room Air, O2 Flow Rate . Vital Sign Comment: stable Latest Gusman Fall Score: 35 Fall Risk: Medium Risk Safety Measures: Call light Within Reach, Bed Alarm Zone 1, Side Rails Side Rails x3, Bed position Low and Locked. Fall Precautions: Yellow Socks Yellow Gown Patient Fall Education Report given to STELLA Lopez.
[2019-11-18 20:00] VITALS: BP 149/84
--- NOTE | 2019-11-18 20:00 | NUR ---
NURSE NOTES: RECEIVED PATIENT LYING IN BED, AWAKE, ALERT/ORIENTED X3, VERBALLY RESPONSIVE, COOPERATIVE/WATCHING TELEVISION, ASKING FOR SMOKING SCHEDULE, INFORMED PATIENT THAT [facility] IS NO LONGER A SMOKING FACILITY, VERBALIZED UNDERSTANDING. NO IV SITE NOTED, MD AWARE. NO REPORT OF GI DISCOMFORT, NO N/V/D. SIDE RAILS UP X2 FOR MOBILITY, BED IN LOWEST POSITION FOR SAFETY, ENCOURAGED PATIENT TO UTILIZE CALL LIGHT FOR ASSISTANCE, VERBALIZED UNDERSTANDING, CONTINUE WITH CURRENT PLAN OF CARE. NAD. DC PLANNING ONGOING.
[2019-11-19] VITALS: BP 151/89
[2019-11-19] MEDS: 1/2NS w/KCl 20mEq 1000ml 1,000 ML IV SCH (02:30)
--- NOTE | 2019-11-19 02:41 | Cardiology Progress Note ---
Subjective DATE OF SERVICE: Nov 18, 2019 Agitated at times; confused. Excellent po intake Unreliable historian Metabolic work up - normal B12/folate/TSH XRays reveal several acute rib fx's Patient wanting to smoke Objective Last 24 Hour Vital Signs Date Time Temp Pulse Resp B/P (MAP) Pulse Ox O2 Delivery O2 Flow Rate FiO2 11/19/19 00:00 98.3 88 18 151/89 (109) 99 11/18/19 21:00 Room Air 11/18/19 20:00 97.6 84 18 149/84 (105) 99 11/18/19 16:00 98.2 82 20 127/99 (108) 97 11/18/19 12:00 98.0 68 20 154/96 (115) 97 11/18/19 09:00 Room Air 11/18/19 08:00 97.3 70 20 152/89 (110) 96 11/18/19 04:00 97.1 60 19 156/87 (110) 96 HEENT: normal ENT inspection RHYTHM: NSR LUNGS: diminished breath sounds, other - tender chest wall to palp CARDIAC: normal rate, regular rhythm, normal S1 and S2 ABDOMEN: non tender, soft, no organomegaly EXTREMITIES: normal range of motion, No edema Laboratory Tests Test 11/18/19 06:10 White Blood Count 5.8 K/UL (4.8-10.8) Red Blood Count 4.89 M/UL (4.20-5.40) Hemoglobin 16.1 G/DL (12.0-16.0) H Hematocrit 49.4 % (37.0-47.0) H Mean Corpuscular Volume 101 FL (80-99) H Mean Corpuscular Hemoglobin 33.0 PG (27.0-31.0) H Mean Corpuscular Hemoglobin Concent 32.7 G/DL (32.0-36.0) Red Cell Distribution Width 11.3 % (11.6-14.8) L Platelet Count 162 K/UL (150-450) Mean Platelet Volume 7.0 FL (6.5-10.1) Neutrophils (%) (Auto) % (45.0-75.0) Lymphocytes (%) (Auto) % (20.0-45.0) Monocytes (%) (Auto) % (1.0-10.0) Eosinophils (%) (Auto) % (0.0-3.0) Basophils (%) (Auto) % (0.0-2.0) Differential Total Cells Counted 100 Neutrophils % (Manual) 25 % (45-75) L Lymphocytes % (Manual) 67 % (20-45) H Monocytes % (Manual) 6 % (1-10) Eosinophils % (Manual) 2 % (0-3) Basophils % (Manual) 0 % (0-2) Band Neutrophils 0 % (0-8) Platelet Estimate Adequate Platelet Morphology Normal Macrocytosis 1+ Sodium Level 143 MMOL/L (136-145) Potassium Level 5.4 MMOL/L (3.5-5.1) H Chloride Level 107 MMOL/L (98-107) Carbon Dioxide Level 25 MMOL/L (21-32) Anion Gap 11 mmol/L (5-15) Blood Urea Nitrogen 15 mg/dL (7-18) Creatinine 0.4 MG/DL (0.55-1.30) L Estimat Glomerular Filtration Rate > 60 mL/min (>60) Glucose Level 63 MG/DL (74-106) L Calcium Level 8.9 MG/DL (8.5-10.1) Magnesium Level 2.3 MG/DL (1.8-2.4) Total Bilirubin 1.0 MG/DL (0.2-1.0) Aspartate Amino Transf (AST/SGOT) 84 U/L (15-37) H Alanine Aminotransferase (ALT/SGPT) 62 U/L (12-78) Alkaline Phosphatase 139 U/L (46-116) H Total Protein 7.6 G/DL (6.4-8.2) Albumin 3.4 G/DL (3.4-5.0) Globulin 4.2 g/dL Albumin/Globulin Ratio 0.8 (1.0-2.7) L Microbiology Date/Time Source Procedure Growth Status 11/16/19 19:25 Blood Blood Culture - Preliminary NO GROWTH AFTER 24 HOURS Resulted 11/16/19 19:10 Blood Blood Culture - Preliminary NO GROWTH AFTER 24 HOURS Resulted Assessment/Plan Assessment/Plan Substance abuse; PCP Acute rib fractures Toxic encephalopathy Dehydration/hypernatremia/hypovolemia Metabolic encephalopathy Homeless Hx DM Hx HTN Nicotine dependence PT/OT Hydration Pain control as needed Nicotine patch D/W caser Peter Cantor MD Nov 19, 2019 02:41
--- NOTE | 2019-11-19 03:44 | Consultation ---
DATE OF CONSULTATION: 11/18/2019 CONSULTING PHYSICIAN: Deepali Ryder M.D. HISTORY OF PRESENT ILLNESS: This is a 58-year-old female with a history of hypertension, diabetes, who has been admitted to the hospital by paramedics for altered mental status. The patient was found in the streets. Her urine toxicology was positive for PCP. The patient was confused. She was brought in, placed on bilateral soft restraints. She was confused and was agitated. Today during evaluation, she was hallway with her cane. The patient was able to answer the questions. She was a poor historian. She was not confused, however, she was unsteady and had denied using drugs. She did not know how she has PCP in her system. PAST PSYCHIATRIC HISTORY: She denies any psychiatric hospitalization or suicide attempt or seeing a psychiatrist. PAST MEDICAL HISTORY: Significant for hypertension and diabetes. ALLERGIES: No known drug allergies. SUBSTANCE ABUSE HISTORY: She denies illicit drug use or alcohol; however, her system is positive for PCP she has a history of substance abuse. MENTAL STATUS EXAMINATION: Alert and oriented x3. Mood is neutral. Affect is flat. Thought process is concrete. Thought content, no suicidal or homicidal ideation. Cognition is impaired. Insight and judgment limited. ASSESSMENT: [place] I Substance use disorder [place] II Deferred. [place] III Acute toxic encephalopathy. [place] IV Moderate. [place] V 50 PLAN: 1. No psychotropic medication at this time. 2. Restraint was discontinued. 3. The patient is not an imminent danger to self or others. 4. We will start the patient on Remeron 15 mg at bedtime. 5. Discussed with the nurse. Deepali Ryder M.D. DR: GABY JOB#: [id number] CC:
[2019-11-19 04:00] VITALS: BP 142/87
--- NOTE | 2019-11-19 07:00 | NUR ---
NURSE NOTES: Received report from Alethea GREEN, patient AOx4, having breakfast, sitting in a chair without signs of distress, no IV, MD is aware. No pain at this time. Cane at bedside. Bed at lowest position, call light within reach
--- NOTE | 2019-11-19 07:30 | NUR ---
NURSE NOTES: Patient left AMA. She verbalized "I need a cigarette, I need to go to the methadone office, I can't wait anymore and there is no reason to stay here". patient educated about the importance of following MD protocol for this hospitalization. She verbalized understanding. She is AOx4, knows her needs, independent self care, steady gait with cane. Signed AMA, refused belonging check and verbalized everything is there with her. RN assisted her to lobby, gave her cigarettes and compugraph operator and she left the hospital safely. Notified Dr Shanks regarding AMA
--- NOTE | 2019-11-19 07:55 | NUR ---
NURSE HAND-OFF: Important Events on Shift:[RECEIVED NICOTINE PATCH LEFT DELTOID] Patient Status: [ANXIOUS WHEN AWAKE, OTHERWISE, SLEPT WELL THROUGHOUT THE NIGHT] Diet: [REGULAR] Pending Orders: [N/A] Pending Results/Labs:[] Pending MD notification:[N/A] Latest Vital Signs: Temperature 98.7 , Pulse 86 , B/P 142 /87 , Respiratory Rate 18 , O2 SAT 98 , Room Air, O2 Flow Rate . Vital Sign Comment: [STABLE, AFEBRILE Latest Gusman Fall Score: 35 Fall Risk: Medium Risk Safety Measures: Call light Within Reach, Bed Alarm Zone 1, Side Rails Side Rails x3, Bed position Low and Locked. Fall Precautions: Yellow Socks Yellow Gown Patient Fall Education Report given to [STELLA NGUYEN.
--- NOTE | 2019-11-19 07:55 | NUR ---
NURSE NOTES: Notified Nursing day care supervisor that patient left AMA
--- NOTE | 2019-11-24 13:45 | Discharge Summary ---
Discharge Summary Discharge Summary _ DATE OF ADMISSION: 11/19/2019 DATE OF DISCHARGE: 11/19/2019 Patient left AGAINST MEDICAL ADVICE. REASON FOR ADMISSION: 59 years old female with past medical history of seizure disorder, diabetes mellitus, presented to emergency department with altered mental status. Paramedics were called by a bystander. Patient apparently was found altered outside of her apartment. Upon presentation to ED patient knew her name and knew that she was in the hospital , but could not recall the city she was in and could not remember the date. Patient was very confused. Upon evaluation vital signs were stable. Laboratory work-up revealed no leukocytosis, stable hemoglobin, hematocrit and platelet count. Stable electrolytes and renal parameters. Glucose 92. Lactic acid 1.2. Stable ammonia 18. AST 46 , ALT 51 . Troponin negative, proBNP 86 , CT revealed no acute ischemic changes. Albumin 3.7 . Urinalysis revealed +1 leukocyte esterase , border line pyuria and few bacteria. Urine toxicology screen was positive for PCP. CT scan of the head revealed no acute intracranial pathology. Chest x-ray demonstrated bilateral chronic appearing rib fracture. Acute to subacute appearing fracture of the left posterior third and fourth ribs. No pneumothorax or pleural effusion.. Interstitial prominence and patchy bibasilar opacity. Findings probably related to interstitial edema and atelectasis. Patient received a liter of fluids , empiric antibiotic and was admitted for further management CONSULTANTS: psychiatrist [facility] COURSE: Patient admitted to medical surgical floor and started on hypotonic IV hydration. Withdrawal precautions maintained. DVT prophylaxis provided. Pulse oximetry remained stable on room air. Lipid panel stable. B12, folate, TSH all within normal limits. Pain management was addressed as needed. general scrap worker met with the patient, but patient was, unwilling to engage in a conversation. Psychiatrist seen and evaluated patient . Per psychiatrist patient had substance use disorder along with acute toxic encephalopathy due to intoxication. Psychiatrist recommended no psychotropic medications at this time. Patient appeared not to be at imminent danger to self or others. Patient started on Remeron at bedtime. Sodium improved to 143 with IV hydration. Blood culture preliminary negative at the time of this dictation. Blood pressure and blood sugar remained stable. On 11/18 patient decided to leave AGAINST MEDICAL ADVICE. The risks and consequences of signing AGAINST MEDICAL ADVICE were discussed with patient in detail. Patient verbalized understanding, nevertheless signed AMA form and left. FINAL DIAGNOSES: Substance abuse PCP intoxication Substance use disorder Multiply rib fracture Acute toxic metabolic encephalopathy History of hypertension Diabetes mellitus Dehydration with hypernatremia Seizure disorder Nicotine dependency Homeless I have been assigned to dictate discharge summary for this account. I was not involved in the patient's management. Francia Albarran NP Nov 24, 2019 13:45
--- NOTE | 2019-11-24 14:15 | Cardiology Report ---
APPROVED REPORT EKG Measurement Heart [id number] <Conclusion> Normal sinus rhythm Normal ECG
== END 2019-11-19 07:20 | disposition left against medical advice (07) | DRG 770 ==
LOC: EDUNIT# 17:55 → EDBD 17:55 → EMR 18:16 → 2E 21:28 → EDBEDREQ 23:04 → 4E 11-17 15:11 → OBSVTOIN 11-19 02:30
DX: F16.129 Hallucinogen abuse with intoxication, unspecified (principal); F16.19 Hallucinogen abuse with unspecified hallucinogen-induced disorder; G92 Toxic encephalopathy; N39.0 Urinary tract infection, site not specified; E86.1 Hypovolemia; E87.0 Hyperosmolality and hypernatremia; E86.0 Dehydration; I10 Essential (primary) hypertension; S22.49XA Multiple fractures of ribs, unspecified side, initial encounter for closed fracture; X58.XXXA Exposure to other specified factors, initial encounter; F17.200 Nicotine dependence, unspecified, uncomplicated; E11.9 Type 2 diabetes mellitus without complications; Z59.0 Homelessness
CPT/HCPCS: 36415; 70450; 71045; 80053; 80307; 81003; 82140; 82248; 82550; 82607; 82746; 83605; 83735; 83880; 84443; 84484; 85007; 85025; 85610; 85730; 87040; 93005; 96360; 96361; 96365; 96372; 99285; C8957; G0480; J7030